=== PATIENT | male | born 1960 | race Caucasian/White ===

== ENCOUNTER → 2017-05-31 | Outpatient (CLI) | payer BC ==
[~2017-05-31] VITALS: Ht 182.9 cm; Wt 117.9 kg
[~2017-05-31] MED LIST: /CELE20CA PO; ACET-654 PO; AMOX500C PO; AMOXICILLIN 500 MG CAP PO ONE; CELEBREX PO; CIPR500T89 PO; COUM1TAB17 PO; COUM6TAB PO; CYMB1CAP5 PO; IBUP200C PO; LIDOCAINE 2% INJ 100 MG/5 ML SDV (FOR ANES.) As Ordered ONE; LISI5TAB PO; MULTTAB4 PO; NS 1,000 ML IV ONE; OMEP40CA2 PO; OXYC-141 PO; PERC5TAB12 PO; PERCOCET PO; PROPOFOL 200 MG/20 ML VIAL As Ordered ONE; TYLE325T5 PO; VALS1TAB47 PO; ZOFR20TA PO; fentaNYL 100 MCG/2 ML INJECTION (J3010) As Ordered ONE
--- NOTE | 2017-05-31 12:17 | ROOR ---
Patient Name: Yahir Gonzales Procedure Date: 05/31/2017 11:55 AM Date of : 1960 Age: 56 Room: [facility] Gender: Male Note Status: Finalized Procedure: Upper GI endoscopy Indications: Surveillance for malignancy due to personal history of Baez's esophagus, Heartburn Providers: Douglas PAK MD Referring MD: Maryuri Huang DO Requesting Provider: Medicines: Monitored Anesthesia Care Complications: No immediate complications. Procedure: Pre-Anesthesia Assessment: - The heart rate, respiratory rate, oxygen saturations, blood pressure, adequacy of pulmonary ventilation, and response to care were monitored throughout the procedure. The Endoscope was introduced through the mouth, and advanced to the second part of duodenum. The upper GI endoscopy was accomplished without difficulty. The patient tolerated the procedure well. Findings: The Z-line was variable and was found 40 cm from the incisors. Biopsies were taken with a cold forceps for histology. The esophagus was normal. The stomach was normal. The examined duodenum was normal. Impression: - Z-line variable, 40 cm from the incisors c/w short segment barretts esophagus. Biopsied. - Normal esophagus. - Normal stomach. - Normal examined duodenum. Recommendation: - Continue present medications. - Repeat upper endoscopy in 3 years for surveillance. - Telephone endoscopist for pathology results in 2 weeks. Douglas Pak MD Douglas PAK MD 05/31/2017 12:16:55 PM This report has been signed electronically. Number of Addenda: 0 Note Initiated On: 05/31/2017 11:55 AM Estimated Blood Loss: Estimated blood loss: none.
--- NOTE | 2017-05-31 12:30 | ROOR ---
Patient Name: Yahir Gonzales Procedure Date: 05/31/2017 11:56 AM Date of : 1960 Age: 56 Room: [facility] Gender: Male Note Status: Finalized Procedure: Colonoscopy Indications: High risk colon cancer surveillance: Personal history of colonic polyps, Last colonoscopy: April 2014 Providers: Douglas PAK MD Referring MD: Maryuri Huang DO Requesting Provider: Medicines: Monitored Anesthesia Care Complications: No immediate complications. Procedure: Pre-Anesthesia Assessment: - The heart rate, respiratory rate, oxygen saturations, blood pressure, adequacy of pulmonary ventilation, and response to care were monitored throughout the procedure. The Colonoscope was introduced through the anus and advanced to the cecum, identified by appendiceal orifice and ileocecal valve. The colonoscopy was performed without difficulty. The patient tolerated the procedure well. The quality of the bowel preparation was good. Findings: The perianal and digital rectal examinations were normal. A 4 mm polyp was found in the rectum. The polyp was sessile. The polyp was removed with a cold snare. Resection and retrieval were complete. Internal hemorrhoids were found during retroflexion. The hemorrhoids were small. The exam was otherwise without abnormality on direct and retroflexion views. Impression: - One 4 mm polyp in the rectum, removed with a cold snare. Resected and retrieved. - Internal hemorrhoids. - The colon examination was otherwise normal on direct and retroflexion views. Recommendation: - Repeat colonoscopy in 5 years for surveillance. - Telephone endoscopist for pathology results in 2 weeks. Douglas Pak MD Douglas PAK MD 05/31/2017 12:29:33 PM This report has been signed electronically. Number of Addenda: 0 Note Initiated On: 05/31/2017 11:56 AM Estimated Blood Loss: Estimated blood loss: none.
[2017-05-31 12:56] VITALS: BP 161/90
== END | disposition home or self-care (01) ==
LOC: M OPP 10:36
PROVIDERS: ATTEND Internal Medicine Gastroenterology
DX: Z12.11 Encounter for screening for malignant neoplasm of colon (principal); K63.5 Polyp of colon; K64.8 Other hemorrhoids; Z86.010 Personal history of colon polyps; K22.70 Barrett's esophagus without dysplasia; R12 Heartburn; K22.8 Other specified diseases of esophagus; I10 Essential (primary) hypertension; E78.5 Hyperlipidemia, unspecified; R23.3 Spontaneous ecchymoses; M19.90 Unspecified osteoarthritis, unspecified site; M54.9 Dorsalgia, unspecified; R32 Unspecified urinary incontinence; Z85.46 Personal history of malignant neoplasm of prostate; Z87.891 Personal history of nicotine dependence; Z79.899 Other long term (current) drug therapy; Z80.3 Family history of malignant neoplasm of breast
CPT/HCPCS: 43239; 45385; 88305; J3010

== ENCOUNTER → 2018-05-25 | Outpatient (REF) | payer BC ==
[2018-05-25 14:40] LABS: PSA SCREENING < 0.01 NG/ML (< 4.0)
== END ==
LOC: M LABDRAW1 11:50
DX: Z85.46 Personal history of malignant neoplasm of prostate (principal)
CPT/HCPCS: G0103

== ENCOUNTER → 2018-05-25 | Outpatient (REF) | payer BC ==
[2018-05-25 12:19] LABS: APPEARANCE, URINE CLEAR (CLEAR); BACTERIA, URINE AUTO NEGATIVE (NEGATIVE); BILIRUBIN, URINE AUTO NEGATIVE (NEGATIVE); BLOOD, URINE BLOOD NEGATIVE (NEGATIVE); COLOR, URINE YELLOW (YELLOW); GLUCOSE, URINE (UA) AUTO NEGATIVE (NEGATIVE); KETONE, URINE AUTO NEGATIVE (NEGATIVE); LEUKOCYTE ESTERASE, URINE AUTO NEGATIVE (NEGATIVE); NITRITE, URINE AUTO NEGATIVE (NEGATIVE); PROTEIN, URINE AUTO NEGATIVE (NEGATIVE); RBC, URINE AUTO 0 /HPF (0-3); SPECIFIC GRAVITY URINE AUTO 1.017 (1.002-1.035); SQUAMOUS EPITHELIAL CELL UR AU 0 /HPF (0-6); UROBILINOGEN, URINE AUTO 0.2 mg/dL (0.0-2.0); WBC, URINE AUTO 0 /HPF (0-3)
== END ==
LOC: M SMT 11:29
DX: Z85.46 Personal history of malignant neoplasm of prostate (principal); R35.1 Nocturia; R39.15 Urgency of urination
CPT/HCPCS: 81001

== ENCOUNTER → 2018-06-17 | Outpatient (CLI) | payer BC | LOC: M SLEEP 19:34 | DX: G47.33 Obstructive sleep apnea (adult) (pediatric) (principal) | CPT/HCPCS: 95811 ==

== ENCOUNTER → 2019-03-24 | Outpatient (REF) | payer BC ==
[~2019-03-24] MED LIST changes: -/CELE20CA PO; -AMOXICILLIN 500 MG CAP PO ONE; +CELE1CAP4 PO; -LIDOCAINE 2% INJ 100 MG/5 ML SDV (FOR ANES.) As Ordered ONE; -NS 1,000 ML IV ONE; +OXYC1TAB23 PO; -PERCOCET PO; -PROPOFOL 200 MG/20 ML VIAL As Ordered ONE; -VALS1TAB47 PO; +VALS1TAB67 PO; -ZOFR20TA PO; +ZOFR4TAB16 PO; -fentaNYL 100 MCG/2 ML INJECTION (J3010) As Ordered ONE
== END ==
LOC: M LAB REF 12:18
PROVIDERS: ATTEND Internal Medicine
DX: M25.561 Pain in right knee (principal); M79.642 Pain in left hand

== ENCOUNTER → 2019-10-03 | Outpatient (CLI) | payer OTHER ==
[~2019-10-03] MED LIST changes: -OMEP40CA2 PO; +OMEP40CA97 PO
--- NOTE | 2019-10-03 10:46 | REP ---
CT CHEST WITHOUT CONTRAST: Low-dose screening exam. HISTORY: Personal history of nicotine dependence. Comparison chest x-ray October 21, 2016. No comparison chest CTs. CT FINDINGS: No significant pulmonary nodule or mass lesion is seen. No infiltrate is noted. No endobronchial lesion is seen. Study is otherwise unremarkable. IMPRESSION: Lung BIRADS 1 negative findings. Repeat screening exam recommended 1 year. Electronically Signed by Christian Marcelo MD 10/03/2019 03:32 P
== END ==
LOC: M RAD 07:57
PROVIDERS: ATTEND Internal Medicine
DX: Z87.891 Personal history of nicotine dependence (principal)

== ENCOUNTER → 2020-08-18 | Outpatient (CLI) | payer OTHER ==
[~2020-08-18] MED LIST changes: +HYDR12CA PO; +LOSA100T50 PO; +METF500T13 PO; +ROSU10TA6 PO
== END ==
LOC: M LABSMTC 10:49
PROVIDERS: ATTEND Anesthesiology
DX: Z01.812 Encounter for preprocedural laboratory examination (principal); Z20.828 Contact with and (suspected) exposure to other viral communicable diseases
CPT/HCPCS: C9803; U0003

== ENCOUNTER 2020-08-23 13:20 | Day surgery (SDC) | payer OTHER ==
[~2020-08-23] VITALS: Ht 182.9 cm; Wt 113.4 kg
[~2020-08-23 13:20] MED LIST changes: +NS 1,000 ML IV ONE
[2020-08-23] MEDS ORDERED: fentaNYL 100 MCG/2 ML INJECTION (J3010) As Ordered ONE (14:46)
[2020-08-23] MEDS ORDERED: propofoL 200 MG/20 ML VIAL As Ordered ONE (14:48)
[2020-08-23] MEDS ORDERED: LIDOCAINE 2% 100MG/5ML SDV (FOR ANES.) As Ordered ONE (14:48)
[2020-08-23] MEDS ORDERED: propofoL 500 MG/50 ML VIAL As Ordered ONE (14:50)
--- NOTE | 2020-08-23 15:17 | ROOR ---
Patient Name: Yahir Gonzales Procedure Date: 08/23/2020 2:51 PM Date of : 1960 Age: 59 Room: [facility] Gender: Male Note Status: Finalized Procedure: Upper GI endoscopy Indications: Surveillance for malignancy due to personal history of Baez's esophagus Providers: Douglas PAK MD Referring MD: Maryuri Huang DO Requesting Provider: Medicines: Monitored Anesthesia Care Complications: No immediate complications. Procedure: Pre-Anesthesia Assessment: - The heart rate, respiratory rate, oxygen saturations, blood pressure, adequacy of pulmonary ventilation, and response to care were monitored throughout the procedure. The Endoscope was introduced through the mouth, and advanced to the second part of duodenum. The upper GI endoscopy was accomplished without difficulty. The patient tolerated the procedure well. Findings: The Z-line was variable and was found 39 cm from the incisors. Biopsies were taken with a cold forceps for histology. The exam of the esophagus was otherwise normal. A single localized erosion was found in the cardia. There were no stigmata of recent bleeding. Biopsies were taken with a cold forceps for histology. Very small (insignificant) Hiatal Hernia. The exam of the stomach was otherwise normal. The examined duodenum was normal. Impression: - Z-line variable, 39 cm from the incisors suggestive of a very short segment of barretts esophagus. Biopsied. - Single shallow gastric erosion in the cardia of the stomach. Biopsied. - Very small (insignificant) Hiatal Hernia. - The stomach is otherwise normal. - Normal examined duodenum. Recommendation: - Use Prilosec (omeprazole) 40 mg PO daily. - Repeat upper endoscopy in 3 years for surveillance. Douglas Pak MD Douglas PAK MD 08/23/2020 3:16:03 PM Electronically signed by Douglas PAK MD Number of Addenda: 0 Note Initiated On: 08/23/2020 2:51 PM Estimated Blood Loss: Estimated blood loss: none.
[2020-08-23 15:50] VITALS: BP 134/72
== END 2020-08-23 15:51 | disposition home or self-care (01) ==
LOC: M OPP 13:20
PROVIDERS: ATTEND Internal Medicine Gastroenterology
DX: K22.8 Other specified diseases of esophagus (principal); K25.9 Gastric ulcer, unspecified as acute or chronic, without hemorrhage or perforation; K22.70 Barrett's esophagus without dysplasia; I10 Essential (primary) hypertension; E11.9 Type 2 diabetes mellitus without complications; G47.30 Sleep apnea, unspecified; Z79.84 Long term (current) use of oral hypoglycemic drugs; Z79.899 Other long term (current) drug therapy; Z85.46 Personal history of malignant neoplasm of prostate
CPT/HCPCS: 43239; 88305; J3010

== ENCOUNTER → 2021-03-21 | Outpatient (CLI) | payer OTHER ==
[~2021-03-21] MED LIST changes: -NS 1,000 ML IV ONE
[2021-03-21 16:28] LABS: BASO % 0.5 % (0.0-1.0); EOS # 0.3 10^3/uL (0.0-0.5); EOS % 4.5 % (0.0-3.0); HEMOGLOBIN 13.8 g/dl (13.5-17.5); LYMPH # 1.4 10^3/uL (1.5-5.0); LYMPH % 23.5 % (24.0-44.0); MEAN CORPUSCULAR HEMOGLOBIN 31.4 pg (27.0-33.0); MEAN CORPUSCULAR HGB CONC 33.7 g/dl (32.0-36.5); MEAN CORPUSCULAR VOLUME 93.4 fl (80.0-96.0); MONO # 0.6 10^3/uL (0.0-0.8); MONO % 10.6 % (2.0-8.0); NEUTROPHILS # 3.6 10^3/uL (1.5-8.5); NEUTROPHILS % 60.7 % (36.0-66.0); PLATELET COUNT, AUTOMATED 273 10^3/uL (150-450); RED BLOOD COUNT 4.39 10^6/uL (4.30-6.10)
[2021-03-21 19:51] LABS: ERYTHROCYTE SEDIMENTATION RATE 32 mm/hr (0-20)
== END ==
LOC: M LAB 14:40
PROVIDERS: ATTEND Orthopaedic Surgery
DX: Z47.89 Encounter for other orthopedic aftercare (principal)

== ENCOUNTER → 2021-04-21 | Outpatient (CLI) | payer OTHER ==
[~2021-04-21] MED LIST changes: +ISOVUE-300 61% 50ML VIAL As Ordered ONE; +LIDOCAINE 1% MDV 20ML VIAL As Ordered ONE; +TRIAMCINOLONE ACETONIDE SUSP 40 MG/ML VIAL (J3301) As Ordered ONE
--- NOTE | 2021-04-21 18:05 | REP ---
INDICATION: OSTEOARTHRITIS IN LEFT HIP. COMPARISON: None. TECHNIQUE: The procedure was performed under the direct supervision of Dr. Amador. The benefits and risks including but not limited to pain infection and bleeding and anaphylaxis were explained to the patient and informed consent was obtained. The left femoral neck was localized using fluoroscopic guidance. The skin was prepped and draped in a sterile fashion. 1% lidocaine was used as a local anesthetic. Using fluoroscopic guidance, and last image hold technology, a 22-gauge spinal needle was inserted and advanced to the femoral neck. 0.5 ml of Isovue-300 was injected to verify placement. Six ml of a solution containing 5 ml of 1% Xylocaine and 1 mL of Kenalog 40 mg was injected. The needle was then removed. The patient tolerated the procedure well and there were no immediate complications. Less than 6 seconds of fluoro time was utilized for this procedure. FINDINGS: None IMPRESSION: Fluoro guidance for left hip injection. <Electronically signed by Ezio Sauceda > 04/21/21 [id number] <Electronically signed by Perry Amador > 04/21/21 [id number]
== END ==
LOC: M RADPRO 11:04
PROVIDERS: ATTEND Orthopaedic Surgery
DX: M16.12 Unilateral primary osteoarthritis, left hip (principal)
CPT/HCPCS: 20610; 77002; J3301; Q9967

== ENCOUNTER → 2021-10-29 | Outpatient (CLI) | payer OTHER ==
[~2021-10-29] MED LIST changes: -ISOVUE-300 61% 50ML VIAL As Ordered ONE; -LIDOCAINE 1% MDV 20ML VIAL As Ordered ONE; +OMEP40CA4 PO; -OMEP40CA97 PO; -TRIAMCINOLONE ACETONIDE SUSP 40 MG/ML VIAL (J3301) As Ordered ONE
--- NOTE | 2021-10-29 13:28 | REP ---
INDICATION: SMOKER. COMPARISON: 10/03/2019 also low-dose screening CT of the lungs TECHNIQUE: Axial noncontrast images from the thoracic inlet to the upper abdomen using low-dose lung screening technique (LDCT). Once again, as per the protocol only lung window images were sent to the read station for interpretation. FINDINGS: There are no new abnormal nodules, masses, or opacities. Grossly, the mediastinum and pulmonary bar are stable. Grossly, the imaged upper abdomen and imaged osseous structures are stable. IMPRESSION: Stable lung rads category [address] low-dose screening CT of the lungs. Follow-up as per the revised Fleischner society criteria. <Electronically signed by Darnell Mendoza > 10/29/21 [id number]
== END ==
LOC: M RAD 12:37
PROVIDERS: ATTEND Internal Medicine
DX: Z12.2 Encounter for screening for malignant neoplasm of respiratory organs (principal); Z87.891 Personal history of nicotine dependence

== ENCOUNTER → 2022-06-04 | Outpatient (CLI) | payer OTHER ==
[~2022-06-04] MED LIST changes: +LOSA100T45 PO; -LOSA100T50 PO
== END ==
LOC: M LABSMTC 09:48
PROVIDERS: ATTEND Anesthesiology
DX: Z01.812 Encounter for preprocedural laboratory examination (principal); Z20.822 Contact with and (suspected) exposure to COVID-19

== ENCOUNTER 2022-06-09 06:34 | Day surgery (SDC) | payer OTHER ==
[~2022-06-09] VITALS: Ht 182.9 cm; Wt 119.7 kg
[~2022-06-09 06:34] MED LIST changes: +NS 1,000 ML IV ONE
[2022-06-09] MEDS ORDERED: LIDOCAINE 2% 100MG/5ML SDV (FOR ANES.) As Ordered ONE (06:55)
[2022-06-09] MEDS ORDERED: propofoL 200 MG/20 ML VIAL As Ordered ONE (06:55)
[2022-06-09 08:11] VITALS: BP 167/79
== END 2022-06-09 08:11 | disposition home or self-care (01) ==
LOC: M OPP 06:34
PROVIDERS: ATTEND Internal Medicine Gastroenterology
DX: Z12.11 Encounter for screening for malignant neoplasm of colon (principal); Z86.010 Personal history of colon polyps; K57.30 Diverticulosis of large intestine without perforation or abscess without bleeding; K64.8 Other hemorrhoids; E11.9 Type 2 diabetes mellitus without complications; G47.30 Sleep apnea, unspecified; K22.70 Barrett's esophagus without dysplasia; Z85.46 Personal history of malignant neoplasm of prostate; Z79.02 Long term (current) use of antithrombotics/antiplatelets; Z79.1 Long term (current) use of non-steroidal anti-inflammatories (NSAID); Z79.84 Long term (current) use of oral hypoglycemic drugs; Z79.899 Other long term (current) drug therapy; Z99.89 Dependence on other enabling machines and devices; Z80.3 Family history of malignant neoplasm of breast

== ENCOUNTER → 2022-09-22 | Outpatient (REF) | payer OTHER ==
[~2022-09-22] MED LIST changes: +ACET650T61 PO; +AMOX500T2 PO; +DULO1CAP6; +DULO60CA35 PO; +MULTCHW12 PO; -NS 1,000 ML IV ONE
== END ==
LOC: M LAB REF 12:06
PROVIDERS: ATTEND Internal Medicine
DX: L03.113 Cellulitis of right upper limb (principal)

== ENCOUNTER 2022-09-29 11:55 | Inpatient (IN) | payer OTHER ==
[~2022-09-29] VITALS: Ht 182.9 cm; Wt 124.6 kg
[~2022-09-29 11:55] MED LIST changes: -ACET650T61 PO; -AMOX500T2 PO; -DULO1CAP6; -DULO60CA35 PO; -MULTCHW12 PO
[2022-09-29] MEDS ORDERED: DULO1CAP6 (12:09)
[2022-09-29] MEDS ORDERED: ONDANSETRON 4MG 2ML VIAL IV ONE (16:20)
[2022-09-29] MEDS ORDERED: NS 3,680 ML in IV 1 EA IV ONE (16:20)
[2022-09-29] MEDS ORDERED: ACETAMINOPHEN 500 MG TAB PO ONE (16:20)
[2022-09-29] MEDS ORDERED: MORPHINE 2 MG/ML 1ML VIAL IV PRN (16:20)
[2022-09-29 16:46] LABS: BASO % 0.4 % (0.0-1.0); EOS % 0.1 % (0.0-3.0); HEMATOCRIT 36.5 % (42.0-52.0); HEMOGLOBIN 11.9 g/dl (13.5-17.5); LYMPH # 2.5 10^3/uL (1.5-5.0); LYMPH % 32.5 % (24.0-44.0); MEAN CORPUSCULAR HEMOGLOBIN 30.3 pg (27.0-33.0); MEAN CORPUSCULAR HGB CONC 32.6 g/dl (32.0-36.5); MEAN CORPUSCULAR VOLUME 92.9 fl (80.0-96.0); MONO # 0.9 10^3/uL (0.0-0.8); MONO % 11.7 % (2.0-8.0); NEUTROPHILS # 4.2 10^3/uL (1.5-8.5); NEUTROPHILS % 54.9 % (36.0-66.0); PLATELET COUNT, AUTOMATED 185 10^3/uL (150-450); RED BLOOD COUNT 3.93 10^6/uL (4.30-6.10); WHITE BLOOD COUNT 7.6 10^3/uL (4.0-10.0)
[2022-09-29 16:52] LABS: VENOUS BASE EXCESS 1.4 (-2.0-2.0); VENOUS HCO3 26.1 MEQ/L (23.0-27.0); VENOUS O2 SATURATION 51.1 % (60.0-80.0); VENOUS PARTIAL PRESSURE CO2 41.2 mmHg (38.0-50.0); VENOUS PARTIAL PRESSURE O2 24.4 mmHg (30.0-50.0); VENOUS PH 7.419 UNITS (7.330-7.430); VENOUS STANDARD HCO3 24.7 MEQ/L; VENOUS TOTAL CO2 27.3 MEQ/L (24.0-28.0)
[2022-09-29 17:06] LABS: ERYTHROCYTE SEDIMENTATION RATE 93 mm/hr (0-20)
[2022-09-29 17:07] LABS: INR 1.07; PROTHROMBIN TIME 14.1 SECONDS (12.5-14.5)
[2022-09-29 17:22] LABS: CK-MB VALUE MASS < 1.0 NG/ML (<3.6); CPK CREATINE PHOSPHOKINASE 36 U/L (46-171); MB/CK RELATIVE INDEX 2.77 (< OR =4)
[2022-09-29 17:23] LABS: ALBUMIN 3.1 G/DL (3.2-5.2); ALT/SGPT 58 U/L (7.0-40); BILIRUBIN,TOTAL 0.6 MG/DL (0.3-1.2); BLOOD UREA NITROGEN 16 MG/DL (9-23); CALCIUM LEVEL 8.3 MG/DL (8.3-10.6); CARBON DIOXIDE LEVEL 27 MMOL/L (20-31); CHLORIDE LEVEL 94 MMOL/L (98-107); CREATININE FOR GFR 0.62 MG/DL (0.70-1.30); GLOMERULAR FILTRATION RATE > 60.0 (>49); GLUCOSE, FASTING 156 MG/DL (74-106); LIPASE 40 U/L (12-53); POTASSIUM SERUM 4.1 MMOL/L (3.5-5.1); SODIUM LEVEL 131 MMOL/L (136-145)
[2022-09-29] MEDS ORDERED: ISOVUE-370 76% 100ML VIAL As Ordered ONE (17:46)
[2022-09-29 18:14] LABS: CK-MB VALUE MASS < 1.0 NG/ML (<3.6); CPK CREATINE PHOSPHOKINASE 32 U/L (46-171); MB/CK RELATIVE INDEX 3.12 (< OR =4)
[2022-09-29] MEDS ORDERED: VANCOMYCIN HCL 2,000 MG in D5W 500 ML IV ONE (20:45)
[2022-09-29] MEDS ORDERED: cefTRIAXone SOD 1 GM in D5W MINI-BAG PLUS 50 ML IV ONE (20:45)
[2022-09-29] MEDS ORDERED: VANCOMYCIN HCL 1,000 MG, VIAL MATE ADAPTER 1 EACH in NS 250 ML IV ONE ×2 (21:00→22:00)
[2022-09-29] MEDS: PANTOPRAZOLE 40MG VIAL IV SCH (21:00)
[2022-09-29] MEDS ORDERED: GLUCAGON INJ 1MG VIAL SC PRN (21:10)
[2022-09-29] MEDS ORDERED: DEXTROSE 50% 50 ML SYRINGE IV PRN (21:10)
[2022-09-29] MEDS ORDERED: GLUCOSE 4GM CHEW TABLET PO PRN (21:10)
[2022-09-29] MEDS ORDERED: ACET650T61 PO (21:42)
[2022-09-29] MEDS ORDERED: DULO60CA35 PO (21:42)
[2022-09-29] MEDS ORDERED: MULTCHW12 PO (21:42)
[2022-09-29] MEDS ORDERED: AMOX500T2 PO (21:42)
[2022-09-29] MEDS ORDERED: HOME MED LIST COMPLETE! XX SCH (21:45)
[2022-09-29] MEDS ORDERED: IPRATROPIUM 0.5MG/ALBUTEROL 2.5MG INH SOL UD 3ML (DUONEB) NEB PRN (22:35)
[2022-09-29 23:13] LABS: HEMATOCRIT 32.3 % (42.0-52.0); HEMOGLOBIN 10.3 g/dl (13.5-17.5)
[2022-09-29] MEDS: ACETAMINOPHEN TAB 650MG DOSE (2X325MG) PO PRN (23:53)
[2022-09-30 00:05] VITALS: BP 127/79
[2022-09-30 00:34] VITALS: BP_SYST 119; BP_SYST 121; BP_DIAS 73; BP_DIAS 75; BP_DIAS 76
[2022-09-30] MEDS: PIPERACILLIN/TAZOBACTAM SOD 4.5 GM in D5W MINI-BAG PLUS 50 ML IV SCH ×2 (01:02→06:33)
[2022-09-30 04:54] VITALS: BP 112/69
[2022-09-30] MEDS ORDERED: VANCOMYCIN HCL 1,000 MG, VIAL MATE ADAPTER 1 EACH in D5W 250 ML IV SCH (05:00)
[2022-09-30] MEDS: ACETAMINOPHEN TAB 650MG DOSE (2X325MG) PO PRN ×3 (05:28→18:03)
[2022-09-30 06:07] LABS: HEMATOCRIT 34.1 % (42.0-52.0); HEMOGLOBIN 10.9 g/dl (13.5-17.5); MEAN CORPUSCULAR HEMOGLOBIN 30.4 pg (27.0-33.0); PLATELET COUNT, AUTOMATED 157 10^3/uL (150-450); RED BLOOD COUNT 3.59 10^6/uL (4.30-6.10); WHITE BLOOD COUNT 5.4 10^3/uL (4.0-10.0)
[2022-09-30 08:40] LABS: ALBUMIN 2.5 G/DL (3.2-5.2); ALT/SGPT 55 U/L (7.0-40); BILIRUBIN,TOTAL 0.4 MG/DL (0.3-1.2); BLOOD UREA NITROGEN 10 MG/DL (9-23); CALCIUM LEVEL 7.7 MG/DL (8.3-10.6); CARBON DIOXIDE LEVEL 26 MMOL/L (20-31); CHLORIDE LEVEL 101 MMOL/L (98-107); CREATININE FOR GFR 0.55 MG/DL (0.70-1.30); FERRITIN 1492.5 NG/ML (10.5-307.3); GLOMERULAR FILTRATION RATE > 60.0 (>49); GLUCOSE, FASTING 150 MG/DL (74-106); IRON (FE) 27 UG/DL (65-175); MAGNESIUM LEVEL 1.8 MG/DL (1.8-2.4); PERCENT SATURATION 12.7 % (19.7-50.0); POTASSIUM SERUM 3.8 MMOL/L (3.5-5.1); SODIUM LEVEL 137 MMOL/L (136-145); TOTAL IRON BINDING CAPACITY 212 UG/DL (250-425); TOTAL PROTEIN 5.9 G/DL (5.7-8.2)
[2022-09-30] MEDS: INSULIN LISPRO (NovoLOG) PER UNIT SC SCH ×3 (08:54→18:01)
[2022-09-30 08:57] LABS: HEMOGLOBIN A1c 6.6 % (4.0-6.0)
[2022-09-30] MEDS: ROSUVASTATIN 10 MG TAB (CRESTOR) PO SCH (09:07)
[2022-09-30] MEDS: PANTOPRAZOLE 40MG VIAL IV SCH ×2 (09:07→21:16)
[2022-09-30] MEDS: DOXYCYCLINE HYCLATE 100MG TABLET PO SCH ×2 (09:07→21:16)
[2022-09-30] MEDS: DOCUSATE SODIUM 100MG CAPSULE PO SCH ×2 (09:07→21:16)
[2022-09-30 09:16] LABS: VITAMIN B12 LEVEL 458 PG/ML (211-911)
[2022-09-30] MEDS ORDERED: ISOVUE-370 76% 100ML VIAL As Ordered ONE (10:42)
[2022-09-30 10:46] VITALS: BP 132/75
[2022-09-30 12:50] LABS: FOLATE 12.67 NG/ML (>5.4)
[2022-09-30 14:00] VITALS: BP 106/52
[2022-09-30] MEDS: PIPERACILLIN/TAZOBACTAM SOD 3.375 GM in D5W MINI-BAG PLUS 50 ML IV SCH (18:01)
[2022-09-30] MEDS: LACTOBACILLUS ACIDOPHILUS CAP (BACID) PO SCH (18:01)
[2022-09-30] MEDS: traMADol 50 MG TAB PO PRN (18:03)
[2022-09-30 19:30] VITALS: BP 110/68
[2022-09-30] MEDS ORDERED: INSULIN LISPRO (NovoLOG) PER UNIT SC SCH (21:00)
[2022-09-30] MEDS ORDERED: SENNA 8.6 MG TAB (SENOKOT) PO SCH (21:00)
[2022-09-30] MEDS: FERROUS SULFATE 325MG TAB PO SCH (21:16)
[2022-09-30] MEDS: DULoxetine 30MG CAPSULE (CYMBALTA) PO SCH (21:16)
[2022-10-01] MEDS: PIPERACILLIN/TAZOBACTAM SOD 3.375 GM in D5W MINI-BAG PLUS 50 ML IV SCH ×3 (00:59→12:27)
[2022-10-01] MEDS: traMADol 50 MG TAB PO PRN (01:09)
[2022-10-01 05:10] VITALS: BP 129/82
[2022-10-01] MEDS: ACETAMINOPHEN TAB 650MG DOSE (2X325MG) PO PRN (05:23)
[2022-10-01 05:57] LABS: HEMATOCRIT 31.8 % (42.0-52.0); HEMOGLOBIN 10.6 g/dl (13.5-17.5); MEAN CORPUSCULAR HEMOGLOBIN 30.5 pg (27.0-33.0); MEAN CORPUSCULAR HGB CONC 33.3 g/dl (32.0-36.5); MEAN CORPUSCULAR VOLUME 91.6 fl (80.0-96.0); PLATELET COUNT, AUTOMATED 164 10^3/uL (150-450); RED BLOOD COUNT 3.47 10^6/uL (4.30-6.10); WHITE BLOOD COUNT 4.6 10^3/uL (4.0-10.0)
[2022-10-01 07:06] LABS: ALBUMIN 2.5 G/DL (3.2-5.2); ALT/SGPT 67 U/L (7.0-40); BILIRUBIN,TOTAL 0.3 MG/DL (0.3-1.2); BLOOD UREA NITROGEN 12 MG/DL (9-23); CALCIUM LEVEL 8.5 MG/DL (8.3-10.6); CARBON DIOXIDE LEVEL 28 MMOL/L (20-31); CHLORIDE LEVEL 102 MMOL/L (98-107); CREATININE FOR GFR 0.48 MG/DL (0.70-1.30); GLOMERULAR FILTRATION RATE > 60.0 (>49); GLUCOSE, FASTING 158 MG/DL (74-106); POTASSIUM SERUM 3.8 MMOL/L (3.5-5.1); SODIUM LEVEL 139 MMOL/L (136-145); TOTAL PROTEIN 5.7 G/DL (5.7-8.2)
[2022-10-01] MEDS: INSULIN LISPRO (NovoLOG) PER UNIT SC SCH ×2 (07:32→12:27)
[2022-10-01 08:10] VITALS: BP 129/82
[2022-10-01] MEDS: DOXYCYCLINE HYCLATE 100MG TABLET PO SCH (08:33)
[2022-10-01] MEDS: ROSUVASTATIN 10 MG TAB (CRESTOR) PO SCH (08:34)
[2022-10-01] MEDS: DULoxetine 30MG CAPSULE (CYMBALTA) PO SCH (08:34)
[2022-10-01] MEDS: DOCUSATE SODIUM 100MG CAPSULE PO SCH (08:34)
[2022-10-01] MEDS: FERROUS SULFATE 325MG TAB PO SCH (08:34)
[2022-10-01 08:35] VITALS: BP 129/82
[2022-10-01] MEDS: LACTOBACILLUS ACIDOPHILUS CAP (BACID) PO SCH (08:35)
[2022-10-01] MEDS: PANTOPRAZOLE 40MG VIAL IV SCH (08:35)
[2022-10-01] MEDS ORDERED: ENOXAPARIN 40MG/0.4ML SYRINGE (J1650 PER 10MG) SC SCH (09:00)
[2022-10-01] MEDS ORDERED: OMEPRAZOLE 20MG CAP PO SCH (09:00)
[2022-10-01] MEDS ORDERED: LOSARTAN 50MG TABLET PO SCH (09:00)
[2022-10-01] MEDS ORDERED: RISATAB3 PO (13:54)
[2022-10-01] MEDS ORDERED: DOXY100T PO (13:54)
[2022-10-01] MEDS ORDERED: TRAM50TA2 PO (13:54)
[2022-10-01] MEDS ORDERED: AMOX500T2 PO (13:54)
[2022-10-01] MEDS ORDERED: COLA100C5 PO (13:54)
[2022-10-01] MEDS ORDERED: FERR1TAB8 PO (13:54)
[2022-10-01] MEDS ORDERED: AMOX875T2 PO (13:57)
[2022-10-02 16:08] LABS: BODY FLUID CULTURE Not indicated. (.); LEGIONELLA ANTIGEN URINE Negative (Negative); ORGANISM ID Not indicated. (.); SPECIMEN SOURCE Urine (.); URINE STREP PNEUMONIAE ANTIGEN Negative (Negative)
== END 2022-10-01 14:45 | disposition home or self-care (01) | DRG 720 ==
LOC: M ED 11:55 → M ED INP 21:07 → ENRESERV 22:44 → M MS5PR 09-30 00:02
PROVIDERS: ADMIT Internal Medicine; ATTEND Internal Medicine
DX: A41.9 Sepsis, unspecified organism (principal); J18.9 Pneumonia, unspecified organism; E11.9 Type 2 diabetes mellitus without complications; D50.9 Iron deficiency anemia, unspecified; I10 Essential (primary) hypertension; G47.33 Obstructive sleep apnea (adult) (pediatric); K21.9 Gastro-esophageal reflux disease without esophagitis; E78.5 Hyperlipidemia, unspecified; L03.113 Cellulitis of right upper limb; Z79.899 Other long term (current) drug therapy; Z85.46 Personal history of malignant neoplasm of prostate

== ENCOUNTER 2024-04-24 06:43 | Emergency (ER) | payer OTHER ==
[~2024-04-24] VITALS: Ht 182.9 cm; Wt 123.3 kg
[~2024-04-24 06:43] MED LIST changes: +ACET650T61 PO; +AMOX500T2 PO; +AMOX875T2 PO; +COLA100C5 PO; +DOXY100T PO; +DULO1CAP6; +DULO60CA35 PO; +FERR1TAB8 PO; -LOSA100T45 PO; +LOSA100T46 PO; +MULTCHW12 PO; +RISATAB3 PO; -ROSU10TA6 PO; +ROSU10TA61 PO; +TRAM50TA2 PO
[2024-04-24] MEDS: LIDOCAINE 5% (LIDODERM) PATCH TD ONE (07:36)
[2024-04-24 07:51] LABS: BASO % 0.6 % (0.0-1.0); EOS # 0.3 10^3/uL (0.0-0.5); EOS % 4.1 % (0.0-3.0); HEMATOCRIT 40.6 % (42.0-52.0); HEMOGLOBIN 13.9 g/dl (13.5-17.5); LYMPH # 1.6 10^3/uL (1.5-5.0); LYMPH % 25.8 % (24.0-44.0); MEAN CORPUSCULAR HEMOGLOBIN 31.7 pg (27.0-33.0); MEAN CORPUSCULAR HGB CONC 34.2 g/dl (32.0-36.5); MEAN CORPUSCULAR VOLUME 92.7 fl (80.0-96.0); MONO # 0.5 10^3/uL (0.0-0.8); MONO % 8.6 % (2.0-8.0); NEUTROPHILS # 3.7 10^3/uL (1.5-8.5); NEUTROPHILS % 60.6 % (36.0-66.0); PLATELET COUNT, AUTOMATED 245 10^3/uL (150-450); RED BLOOD COUNT 4.38 10^6/uL (4.30-6.10); WHITE BLOOD COUNT 6.2 10^3/uL (4.0-10.0)
[2024-04-24 08:16] LABS: LIPASE 30 U/L (12-53)
[2024-04-24 08:18] LABS: ALBUMIN 3.6 G/DL (3.2-5.2); ALKALINE PHOSPHATASE 91 U/L (46-116); ALT/SGPT 35 U/L (7.0-40); AST/SGOT 14 U/L (<34); BILIRUBIN,DIRECT 0.1 MG/DL (<0.4); BILIRUBIN,TOTAL 0.4 MG/DL (0.3-1.2); BLOOD UREA NITROGEN 16 MG/DL (9-23); CALCIUM LEVEL 8.7 MG/DL (8.3-10.6); CARBON DIOXIDE LEVEL 27 MMOL/L (20-31); CHLORIDE LEVEL 105 MMOL/L (98-107); CREATININE FOR GFR 0.47 MG/DL (0.70-1.30); GLOMERULAR FILTRATION RATE > 60.0 (>49); GLUCOSE, FASTING 164 MG/DL (74-106); POTASSIUM SERUM 4.3 MMOL/L (3.5-5.1); SODIUM LEVEL 138 MMOL/L (136-145)
[2024-04-24] MEDS ORDERED: METH-1164 PO (08:50)
[2024-04-24 08:59] VITALS: BP 156/97; TEMP 97.6; O2SAT 96
== END 2024-04-24 09:00 | disposition home or self-care (01) ==
LOC: M ED 06:43
DX: R10.9 Unspecified abdominal pain (principal); M62.830 Muscle spasm of back; X50.0XXA Overexertion from strenuous movement or load, initial encounter; I10 Essential (primary) hypertension; E78.5 Hyperlipidemia, unspecified; F32.A Depression, unspecified; Z79.4 Long term (current) use of insulin; Z79.811 Long term (current) use of aromatase inhibitors; Z79.899 Other long term (current) drug therapy; Z79.1 Long term (current) use of non-steroidal anti-inflammatories (NSAID); Y99.9 Unspecified external cause status

== ENCOUNTER → 2024-06-27 | Outpatient (CLI) | payer OTHER ==
[~2024-06-27] MED LIST changes: +METH-1164 PO
== END ==
LOC: M RAD 13:28
PROVIDERS: ATTEND Internal Medicine
DX: Z12.2 Encounter for screening for malignant neoplasm of respiratory organs (principal); F17.211 Nicotine dependence, cigarettes, in remission

== ENCOUNTER → 2025-02-05 | Outpatient (CLI) | payer MEDICARE, OTHER | LOC: M PLAIMG 10:39 | PROVIDERS: ATTEND Internal Medicine | DX: R91.1 Solitary pulmonary nodule (principal) ==